=== PATIENT | female | born 1970 | race Caucasian/White ===

== ENCOUNTER 2017-01-04 16:02 | Emergency (ER) | payer OTHER ==
[~2017-01-04] VITALS: Ht 157.5 cm; Wt 84.0 kg
[~2017-01-04 16:02] MED LIST: CIPR500T4 PO; IBUP-1542 PO; MAG355OR15 PO; PRED20TA PO
[2017-01-04 16:05] VITALS: Ht 157.5 cm; Wt 84.0 kg
[2017-01-04] MEDS ORDERED: IPRATROPIUM (NEB) 0.5 MG/2.5 ML AMP NEB STA (17:28)
[2017-01-04] MEDS ORDERED: ALBUTEROL 0.083% (NEB) 2.5 MG/3 ML AMP NEB STA (17:28)
[2017-01-04] MEDS ORDERED: SOD CHLORIDE 0.9% 1,000 ML IV STA (17:28)
[2017-01-04] MEDS ORDERED: KETOROLAC 15 MG INJ IV STA (17:28)
[2017-01-04 17:45] LABS: ADD SCAN DIFF NO
[2017-01-04 17:47] LABS: BASOPHILS % 0.3 % (0.0-2.0); EOSINOPHILS % 0.5 % (0.0-7.0); HEMATOCRIT 38.7 % (37.0-47.0); HEMOGLOBIN 12.9 g/dl (12.0-16.0); LYMPHOCYTES # 1.7 10^3/ul (0.8-2.9); LYMPHOCYTES % 29.1 % (15.0-51.0); MEAN CORPUSCULAR HEMOGLOBIN 30.9 pg (29.0-33.0); MEAN CORPUSCULAR HGB CONC 33.3 g/dl (32.0-37.0); MEAN CORPUSCULAR VOLUME 92.8 fl (82.0-101.0); MEAN PLATELET VOLUME 10.2 fl (7.4-10.4); MONOCYTE # 0.6 10^3/ul (0.3-0.9); MONOCYTES % 9.5 % (0.0-11.0); NEUTROPHIL # 3.5 10^3/ul (1.6-7.5); NEUTROPHILS % 60.3 % (39.0-77.0); PLATELET COUNT 284 10^3/UL (140-415); RED BLOOD COUNT 4.17 10^6/ul (4.20-5.40); RED CELL DISTRIBUTION WIDTH 13.9 % (11.5-14.5); WHITE BLOOD COUNT 5.8 10^3/ul (4.8-10.8)
--- NOTE | 2017-01-04 17:51 | ERD ---
ER Documentation Chief Complaint Date/Time DATE: 01/04/17 TIME: 17:44 Chief Complaint cp; body aches; coughing; x 3 days HPI 46-year-old female history of fibromyalgia, chronic back pain and Crohn's disease with irritable bowel disease who presents to the emergency room with multiple complaints. She describes approximately 3 days of symptoms including cough that is mildly productive of sputum with blood-tinged occasionally. She describes chest heaviness that is pressure-like but nonexertional and feels like she cannot take a deep breath in. She denies any calf swelling, travel, immobilization, estrogen replacement. She describes subjective fevers over this timeframe. No sick contacts. ROS All systems reviewed and are negative except as per history of present illness. Medications Home Meds Active Scripts Hydrocodone Bit/Homatrop Me-Br ([place] 5-1.5 mg Tablet) 1 Each Tablet, 1 EACH PO TID Y for COUGH, #8 TAB Prov:PONCHO JACKSON MD 01/04/17 Albuterol Sulfate* (Ventolin HFA*) 18 Gm Hfa.aer.ad, 2 PUFF INHALATION Q4H, #1 INHALER Prov:PONCHO JACKSON MD 01/04/17 Ibuprofen* (Motrin*) 800 Mg Tab, 800 MG PO Q6H Y for PAIN AND OR ELEVATED TEMP, #30 TAB Prov:PONCHO JACKSON MD 01/04/17 Discontinued Scripts Mag Hydrox/Al Hydrox/Simeth (Maalox Ms Liquid) 360 Ml Oral.susp, 2 TSP PO TID, # 24 OZ Prov:GERI BRANDT MD 05/13/16 Ibuprofen* (Motrin*) 600 Mg Tab, 600 MG PO Q8 for PAIN AND/OR INFLAMMATION, #30 TAB Prov:GERI BRANDT MD 05/13/16 Ciprofloxacin Hcl* (Ciprofloxacin Hcl*) 500 Mg Tablet, 500 MG PO BID for 5 Days , TAB Prov:GERI BRANDT MD 05/13/16 Prednisone* (Prednisone*) 20 Mg Tab, 40 MG PO DAILY for 10 Days, TAB Prov:GERI BRANDT MD 05/13/16 Allergies Allergies: Coded Allergies: No Known Allergy (Verified , 01/04/17) PMhx/Soc History of Surgery: Yes (appendectomy) Anesthesia Reaction: No Hx Neurological Disorder: No Hx Respiratory Disorders: No Hx Cardiac Disorders: No Hx Psychiatric Problems: No Hx Alcohol Use: No Hx Substance Use: No Hx Tobacco Use: No FmHx Family History: No diabetes Physical Exam Vitals Vital Signs Date Time Temp Pulse Resp B/P Pulse Ox O2 Delivery O2 Flow Rate FiO2 01/04/17 17:55 104 20 96 21 01/04/17 17:44 Nasal Cannula 01/04/17 16:05 99.4 132 22 144/81 99 Physical Exam General: Well developed, well nourished, no acute distress Head: Normocephalic, atraumatic. Eyes: Pupils equally reactive, EOM intact ENT: Moist mucous membranes, sinus congestion with swollen turbinates Neck: Supple, no lymphadenopathy Respiratory: Lungs clear bilaterally, no distress Cardiovascular: Tachycardia, no murmurs, rubs, or gallops Abdominal: Soft, non-tender, non-distended, no peritoneal signs : Deferred MSK: No edema, no unilateral swelling, 5/5 strength Neurologic: Alert and oriented, moving all extremities, normal speech, no focal weakness, no cerebellar signs Skin: No rash Psych: Normal mood Result Diagram: 01/04/17 1738 01/04/17 1738 Results 24 hrs Laboratory Tests Test 01/04/17 17:37 01/04/17 17:38 Prothrombin Time 13.6Sec Prothrombin Time Ratio 1.1 INR International Normalized Ratio 1.04 Activated Partial Thromboplast Time 28.1Sec D-Dimer 276.10ng/ml D-Dimer Comment White Blood Count 5.810^3/ul Red Blood Count 4.1710^6/ul Hemoglobin 12.9g/dl Hematocrit 38.7% Mean Corpuscular Volume 92.8fl Mean Corpuscular Hemoglobin 30.9pg Mean Corpuscular Hemoglobin Concent 33.3g/dl Red Cell Distribution Width 13.9% Platelet Count 94374^3/UL Mean Platelet Volume 10.2fl Neutrophils % 60.3% Lymphocytes % 29.1% Monocytes % 9.5% Eosinophils % 0.5% Basophils % 0.3% Nucleated Red Blood Cells % 0.0/100WBC Neutrophils # 3.510^3/ul Lymphocytes # 1.710^3/ul Monocytes # 0.610^3/ul Eosinophils # 0.010^3/ul Basophils # 0.010^3/ul Nucleated Red Blood Cells # 0.010^3/ul Sodium Level 141mmol/L Potassium Level 3.7mmol/L Chloride Level 100mmol/L Carbon Dioxide Level 28mmol/L Anion Gap 17 Blood Urea Nitrogen 13mg/dl Creatinine 0.61mg/dl Glucose Level 132mg/dl Calcium Level 9.2mg/dl Troponin I < 0.012ng/ml Current Medications Medications (Trade) Dose Ordered Sig/Mari Route PRN Reason Start Time Stop Time Status Last Admin Dose Admin Sodium Chloride (NS) 1,000 ml @ 1,000 mls/hr Q1H STAT IV 01/04/17 17:28 01/04/17 18:27 DC 01/04/17 17:43 Ketorolac Tromethamine (Toradol) 15 mg ONCE STAT IV 01/04/17 17:28 01/04/17 17:30 DC 01/04/17 17:43 Albuterol (Proventil 0.083% (Neb)) 2.5 mg ONCE STAT NEB 01/04/17 17:28 01/04/17 17:30 DC 01/04/17 17:54 Ipratropium [place] (Atrovent 0.02% (Neb)) 0.5 mg ONCE STAT NEB 01/04/17 17:28 01/04/17 17:30 DC 01/04/17 17:54 Procedures/MDM EKG, MONITORS, & DIAGNOSTIC IMAGING: EKG: I reviewed and interpreted a 12-lead EKG. Rhythm: Sinus tachycardia Ectopy: None Intervals: No abnormalities ST segments: No elevations or depressions T waves: No contiguous inversions Chest x-ray: I reviewed and interpreted a 1 view of the chest Mediastinum: No enlargement Cardiac silhouette: No cardiomegaly Airspace: Clear lung stearns bilaterally without evidence of pneumothorax Bones: No evidence of fracture LAB INTERPRETATION: No leukocytosis, negative d-dimer, normal troponin MEDICAL DECISION MAKING: The patient presents with multiple complaints that I believe are most consistent with acute bronchitis and upper respiratory tract infection. However the patient does not have a documented fever. She has tachycardia and is complaining of chest pain with occasional blood-tinged sputum. Patient has no risk factors for tuberculosis. I believe again this is most consistent with acute bronchitis as this is the most common cause of scant hemoptysis. The patient's chest pain is nonexertional and constant for 3 days and usually associated with coughing. Patient has no significant risk factors for early cardiac disease. She is a non-smoker. Her heart score is 1 based solely on age. With 3 days of constant symptoms a nonischemic EKG and a negative troponin I believe we can appropriately rule out acute coronary syndrome. I do not believe that inpatient hospitalization is necessary for this patient. The patient does have tachycardia and is describing scant hemoptysis. I cannot rule out PE with the PERC rule out criteria. She meets wells low risk criteria and a d-dimer will be sent. For these reasons the patient will benefit from basic blood testing, troponin, d -dimer, IV fluids, pain control medications. If negative workup outpatient management would be appropriate for treatment of acute bronchitis and symptom control. ER COURSE: The patient's heart rate is improved with antipyretics and fluids. She was given a breathing treatment. She has subjective improvement. Her laboratory testing and diagnostic imaging is negative. At this time the patient has no signs of acute coronary syndrome, acute thromboembolic process. No evidence of pneumonia. At this time no indication for antibiotics. Outpatient management with symptom control including cough medication, inhaler, Motrin would be most appropriate. I kept the patient and/or family informed of laboratory and diagnostic imaging results throughout the emergency room course. DISPOSITION PLAN: We discussed follow up with the patient's primary care doctor within 24 to 48 hours as needed. We also discussed return to the emergency room for worsening symptoms or worsening condition. Outpatient referral: None required Discharge Medications: Hycodan, Motrin, Ventolin Departure Diagnosis: Primary Impression: Acute bronchitis Bronchitis organism: unspecified organism Qualified Code: J20.9 - Acute bronchitis, unspecified organism Additional Impression: Influenza-like illness Condition: PONCHO Christianson MD Jan 04, 2017 17:51
--- NOTE | 2017-01-04 18:00 | RADRPT ---
PROCEDURE: Portable chest x-ray. CLINICAL INDICATION: Chest pain. TECHNIQUE: Portable AP view of the chest. COMPARISON: 07/20/2008. FINDINGS: There is minimal bibasilar atelectasis. No pulmonary edema or conolidation is identified. The card iac silhouette is magnified. No pleural effusion is seen. There is no pneumothorax. IMPRESSION: 1. No evidence of acute cardiopulmonary disease. RPTAT: HTAR .Lawrence Trivedi MD, MD Date Time Electronically viewed and signed by .Lawrence Trivedi MD, on 01/04/2017 17:59 .R/
[2017-01-04 18:02] LABS: CHLORIDE 100 mmol/L (97-110)
[2017-01-04 18:03] LABS: POTASSIUM 3.7 mmol/L (3.5-5.1); SODIUM 141 mmol/L (135-144)
[2017-01-04 18:05] LABS: CREATININE 0.61 mg/dl (0.44-1.00)
[2017-01-04 18:06] LABS: ANION GAP 17 (8-16); BLOOD UREA NITROGEN 13 mg/dl (7-20); CALCIUM 9.2 mg/dl (8.4-10.2); CARBON DIOXIDE 28 mmol/L (21-31); GLUCOSE 132 mg/dl (70-220)
[2017-01-04 18:13] LABS: INR 1.04; PROTIME 13.6 Sec (12.2-14.2); PT RATIO 1.1
[2017-01-04 18:17] LABS: PARTIAL THROMBOPLASTIN TIME 28.1 Sec (25.0-35.0)
[2017-01-04 18:18] LABS: TROPONIN-I < 0.012 ng/ml (0.00-0.12)
[2017-01-04 18:20] LABS: D-DIMER 276.1 ng/ml (<460)
[2017-01-04] MEDS ORDERED: ALBU18HF INHALATION (18:39)
[2017-01-04] MEDS ORDERED: IBUP800T25 PO (18:39)
[2017-01-04] MEDS ORDERED: HYDR-3652 PO (18:39)
== END 2017-01-04 18:51 | disposition home or self-care (01) ==
LOC: E/R 16:02
DX: J20.9 Acute bronchitis, unspecified (principal); R07.89 Other chest pain
CPT/HCPCS: 36415; 71010; 80048; 84484; 85025; 85378; 85610; 85730; 93005; 94664; 96374; J1885; J7030; Z7502; Z7610

== ENCOUNTER 2017-08-14 12:26 | Emergency (ER) | END 2017-08-14 15:00 | disposition home or self-care (01) | DX: R51 Headache (principal); R06.02 Shortness of breath | CPT/HCPCS: 36415; 70450; 80048; 81003; 85025; 85610; 85730; 96374; 96375; J1200; J1885; J2765; J7030; Z7502 ==